=== PATIENT | male | born 1985 | race American Indian/Alaskan Native ===

== ENCOUNTER 2022-05-28 12:15 | Emergency (ER) | payer SELFPAY ==
[2022-05-28] MEDS ORDERED: ONDANSETRON 4 MG ODT TAB PO ONE (20:57)
[2022-05-28] MEDS ORDERED: BUTALB/ACETAMINOPHEN/CAFFEINE TAB PO ONE (20:57)
[2022-05-28] MEDS ORDERED: AMOXICILLIN/K CLAV 875/125MG TAB PO ONE (20:57)
[2022-05-28] MEDS ORDERED: KETOROLAC 30 MG/1 ML INJ IM ONE (20:57)
--- NOTE | 2022-05-28 21:23 | Emergency Department Report ---
ED General Adult HPI - General Chief complaint: Nausea/Vomiting/Diarrhea Stated complaint: COVID SYMPTOMS Source: patient Mode of arrival: Ambulatory Limitations: No Limitations - History of Present Illness Initial comments: Patient is a 36-year-old -[place] male with no past medical history presents to the ED with complaint of acute onset persistent frontal sinus press ure, nasal and sinus congestion for the last 1 week. Patient also complains of persistent frontal sinus pressure and headache for the last 12 hours. Patient states that the nasal and sinus congestion continue to drain into his throat. Patient denies cough, fever, chills, nausea and vomiting, diarrhea, abdominal pain, chest pain or shortness of breath, traumatic injury, change in vision, neck pain, back pain, abdominal pain, or epistaxis. MD Complaint: Nasal and sinus congestion; frontal headache -: Sudden, hour(s) (12) Location: head Radiation: non-radiation Severity scale (0 -10): 8 Quality: aching, sharp Consistency: constant Improves with: none Worsens with: none, immobilization Associated Symptoms: headaches. denies: confusion, chest pain, cough, diaphoresis, fever/chills, loss of appetite, malaise, nausea/vomiting, rash, seizure, shortness of breath, syncope, weakness, other Treatments Prior to Arrival: none - Related Data Previous Rx's Medication Instructions Recorded Last Taken Type Amoxicillin/K Clav Tab [Augmentin 1 tab PO Q12HR #20 tab 05/28/22 Unknown Rx 875 mg] Butalb/Acetamin/Caff 50-325-40 1 - 2 tab PO Q6HR PRN #15 tab 05/28/22 Unknown Rx [Fioricet 50-325-40] Cetirizine HCl [Zyrtec 10mg tab] 10 mg PO DAILY #30 tab 05/28/22 Unknown Rx Ibuprofen [Motrin] 800 mg PO Q8HR PRN #30 tablet 05/28/22 Unknown Rx Allergies Allergy/AdvReac Type Severity Reaction Status Date / Time No Known Allergies Allergy Unverified 05/28/22 12:54 ED Review of Systems ROS: Stated complaint: COVID SYMPTOMS Other details as noted in HPI Constitutional: denies: chills, fever Eyes: denies: eye pain, eye discharge, vision change ENT: congestion, other (frontal sinus pressure). denies: ear pain, throat pain Respiratory: denies: cough, shortness of breath, wheezing Cardiovascular: denies: chest pain, palpitations Endocrine: no symptoms reported Gastrointestinal: denies: abdominal pain, nausea, vomiting, diarrhea Genitourinary: denies: urgency, dysuria Musculoskeletal: denies: back pain, joint swelling, arthralgia Skin: denies: rash, lesions Neurological: headache (frontal ). denies: weakness, paresthesias Psychiatric: denies: anxiety, depression Hematological/Lymphatic: denies: easy bleeding, easy bruising ED Past Medical Hx - Past Medical History Previous Medical History?: No - Medications Home Medications: Home Medications Medication Instructions Recorded Confirmed Last Taken Type Amoxicillin/K Clav Tab [Augmentin 1 tab PO Q12HR #20 tab 05/28/22 Unknown Rx 875 mg] Butalb/Acetamin/Caff 50-325-40 1 - 2 tab PO Q6HR PRN #15 tab 05/28/22 Unknown Rx [Fioricet 50-325-40] Cetirizine HCl [Zyrtec 10mg tab] 10 mg PO DAILY #30 tab 05/28/22 Unknown Rx Ibuprofen [Motrin] 800 mg PO Q8HR PRN #30 tablet 05/28/22 Unknown Rx ED Physical Exam - General Limitations: No Limitations General appearance: alert, in no apparent distress - Head Head exam: Present: atraumatic, normocephalic, normal inspection - Eye Eye exam: Present: normal appearance, PERRL, EOMI Pupils: Present: normal accommodation - ENT ENT exam: Present: normal orophraynx, mucous membranes moist, TM's normal bilaterally, normal external ear exam, other (Palpable frontal and maxillary sinus tenderness; grossly congested nasal passages) - Neck Neck exam: Present: normal inspection, full ROM. Absent: tenderness - Respiratory Respiratory exam: Present: normal lung sounds bilaterally. Absent: respiratory distress, wheezes, rales, rhonchi, chest wall tenderness, accessory muscle use, decreased breath sounds, prolonged expiratory - Cardiovascular Cardiovascular Exam: Present: regular rate, normal rhythm, normal heart sounds. Absent: systolic murmur, diastolic murmur, rubs, gallop - GI/Abdominal GI/Abdominal exam: Present: soft, normal bowel sounds. Absent: tenderness, guarding, rigid, hyperactive bowel sounds, hypoactive bowel sounds - Extremities Exam Extremities exam: Present: normal inspection, full ROM, normal capillary refill - Back Exam Back exam: Present: normal inspection, full ROM. Absent: tenderness, CVA tenderness (R), CVA tenderness (L), muscle spasm, paraspinal tenderness, vertebral tenderness - Neurological Exam Neurological exam: Present: alert, oriented X3, CN II-XII intact, normal gait, reflexes normal - Psychiatric Psychiatric exam: Present: normal affect, normal mood - Skin Skin exam: Present: warm, dry, intact, normal color. Absent: rash ED Course Vital Signs 05/28/22 12:49 Temperature 98.9 F Pulse Rate 92 H Respiratory 18 Rate Blood Pressure 141/78 [Left] O2 Sat by Pulse 99 Oximetry ED Medical Decision Making - Medical Decision Making This is a 36-year-old -[place] male with no past medical history presents to the ED with complaint of acute onset persistent frontal sinus pressure, nasal and sinus congestion for the last 1 week. Patient also com [place] of persistent frontal sinus pressure and headache for the last 12 hours. Patient states that the nasal and sinus congestion continue to drain into his throat. In the ED, patient is alert and oriented x3 and is not in any distress. Patient was treated for pain in the ED and discharged home on medication based on the history and physical exam findings of suspected frontal sinusitis and URI symptoms. Patient was advised to follow-up with his primary care physician in 7 to 10 days for reevaluation or return to the ED immediately if symptoms get worse. - Differential Diagnosis Sinusitis; URI; sinus headache; cluster headache; allergic rhinitis Critical care attestation.: If time is entered above; I have spent that time in minutes in the direct care of this critically ill patient, excluding procedure time. ED Disposition Clinical Impression: Sinus headache, Acute upper respiratory infection Acute frontal sinusitis, unspecified Qualifiers: Recurrence: non-recurrent Qualified Code(s): J01.10 - Acute frontal sinusitis, unspecified Disposition: 01 HOME / SELF CARE / HOMELESS Is pt being admited?: No Does the pt Need Aspirin: No Condition: Stable Instructions: Sinusitis, Adult, [id number], Upper Respiratory Infection, Adult, [id number], Sinus Headache, [id number] Additional Instructions: Take medication with food, drink plenty of fluids, follow-up with your primary care physician in 7 to 10 days for reevaluation. Return to the ED immediately if symptoms get worse. Prescriptions: Amoxicillin/K Clav Tab [Augmentin 875 mg] 1 tab PO Q12HR #20 tab Butalb/Acetamin/Caff 50-325-40 [Fioricet 50-325-40] 1 - 2 tab PO Q6HR PRN #15 tab PRN Reason: Headache Ibuprofen [Motrin] 800 mg PO Q8HR PRN #30 tablet PRN Reason: Headache Cetirizine HCl [Zyrtec 10mg tab] 10 mg PO DAILY #30 tab Referrals: BERTIN STRINGER MD [Primary Care Provider] - 3-5 Days Time of Disposition: 21:24 Print Language: NIGERIEN
[2022-05-28 22:11] VITALS: BP 137/76
== END 2022-05-28 22:11 | disposition home or self-care (01) ==
LOC: ED 12:15
DX: J32.9 Chronic sinusitis, unspecified (principal)
CPT/HCPCS: 96372; 99282; J1885; J3490; Q0162